=== PATIENT | female | born 1970 | race Caucasian/White ===

== ENCOUNTER 2019-08-25 18:06 | Emergency (ER) | payer BC, SELFPAY ==
--- NOTE | 2019-08-25 18:14 | XR_ITS ---
PROCEDURE: XR ANKLE RT MIN 3V CLINICAL INDICATION: fell, twisted ankle Twisting injury with pain COMPARISON: No exams were available for comparison FINDINGS: Small calcific density is present at the tip of the lateral malleolus with associated soft tissue swelling consistent with an avulsion fracture. No other acute findings evident. IMPRESSION: Calcific density at the tip of the lateral malleolus. This could be related to small avulsion fracture or ununited ossification center. There is associated soft tissue swelling Dictated by: Bismark Young MD 08/26/2019 06:44 Electronically signed by Bismark Young MD in [place] 08/26/2019 06:44
[2019-08-25 18:20] VITALS: BP 145/96; PULSE 103; RESP 20; TEMP 36.6; O2SAT 99; BMI 25.2
--- NOTE | 2019-08-25 18:28 | HMH.EDUTC ---
[facility] [place] Clinical Impression: Ankle sprain Qualifiers: Encounter type: initial encounter Involved ligament of ankle: other ligament Laterality: right Qualified Code(s): S93.491A - Sprain of other ligament of right ankle, initial encounter Disposition: Home, Self-Care Condition on Discharge: Good Instructions: How to Use Crutches, Ankle Sprain, DI for Ankle Sprain, How To Perform RICE (Rest, Ice, Compress, Elevate), How to Use a Walking Boot Additional Instructions: *RICE, Rest the extremity, Ice 15-20 minutes 3-4 times daily, Compress- wear the danny wrap as discussed as much as possible to help reduce swelling and pain, Elevate the extremity when at rest *Danny wrap is for support and help control swelling, use it except in the shower. Be sure that is not to tight but not to loose either *Elevate when resting *Ibuprofen every 6-8 hours as needed for pain an inflammation. If need something more can take Tylenol in between doses of Ibuprofen to help Immediately follow up with your family doctor for new or worsening of symptoms, or no noticeable improvement over the next 3-5 days Call back to [facility] alter this evening or tomorrow after 1pm for official Radiology reading of your xray Follow up with Dr Henry for further evaluation and treatment of your ankle sprain/injury Return if needed Straight to ER if any life threatening symptoms Referrals: Stefan Granados MD [Primary Care Provider] - As needed Dolly Henry DPM [Staff Physician] - As needed Time of Disposition: 18:39 Medical Decision Making - Dustin Inquiry Pt receiving controlled substance: No Dustin was queried for this patient: No Vital Signs: 08/25/19 18:20 08/25/19 18:51 Temperature 97.9 F 97.9 F Temperature Source Oral Pulse Rate 103 H Pulse Rate [Right Brachial] 103 H Respiratory Rate 20 20 Blood Pressure 145/96 H Blood Pressure [Right Arm] 145/96 H Blood Pressure Mean [Right Arm] 112 Blood Pressure Source [Right Arm] Automatic Cuff Blood Pressure Position [Right Arm] Sitting 02 Sat by Pulse Oximetry 99 Oxygen Delivery Method Room Air Orders (Tests/Meds): ORDERS Category Date Time Status Ankle XR -Right minimum 3 Views [XR ankle RT min 3V] Exams 08/25/19 18:14 Taken Stat - Radiology Data #1 Image(s): Ankle Image Reviewed: Yes I reviewed the patient's radiology image No acute fracture observed, will place in walking boot, crutches and have patient follow up with Dr Henry [facility] [place] - General Stated complaint: AO fall injured R ankle 08/23/19 Time Seen by Provider: 08/25/19 18:28 Mode of Arrival: Ambulatory Source of Information: Patient Limitations: No Limitations Description of Symptoms (Recalled from Triage Doc. by RN): PATIENT STATES THAT SUNDAY SHE WENT TO STEP OUT OF HER CAMPER AND TURNED HER RIGHT ANKLE. SWELLING NOTED TO SITE HEENT Symptoms (Recalled from RN notes): No Resp Symptoms (Recalled from RN notes): No Skin Symptoms (Recalled from RN notes): No MS Symptoms (Recalled from RN notes): Yes Functional Status (Recalled from RN notes): WNL - History of Present Illness Provider Complaint: Patient states that she was walking out of her camper earlier when she slipped and rolled her right ankle States that she has been able to walk on it but having pain, swelling, and bruising that has continued to get worse States that family member came over and looked at it and told her that she needed to get it checked so she came in - Related Data Home Medications Medication Instructions Recorded Confirmed No Known Home Medications 08/25/19 08/25/19 Allergies Allergy/AdvReac Type Severity Reaction Status Date / Time Sulfa (Sulfonamide Allergy Verified 08/25/19 18:24 Antibiotics) - Worker's Comp Is this a Worker's Comp case?: No [facility] History - Hepatitis A Screen Drug use history?: No High risk sexual behaviors?: No History of sexually transmitted infection?: No Currently employed?: No
[2019-08-25 18:51] VITALS: BP 145/96; PULSE 103; RESP 20; TEMP 36.6; O2SAT 99
== END 2019-08-25 18:55 | disposition home or self-care (01) ==
PROVIDERS: Emergency Provider Nurse Practitioner; PCP Internal Medicine Adolescent Medicine
DX: S93.491A Sprain of other ligament of right ankle, initial encounter (principal); X50.1XXA Overexertion from prolonged static or awkward postures, initial encounter; Y92.89 Other specified places as the place of occurrence of the external cause
CPT/HCPCS: 29515; 73610; 99201; 99202

== ENCOUNTER → 2020-09-16 09:34 | Outpatient (CLI) | payer BC, SELFPAY ==
--- NOTE | 2020-09-16 09:34 | MM_ITS ---
PROCEDURE INFORMATION: Exam: MG Screening 3D Mammography Exam date and time: 09/16/2020 9:34 AM Age: 50 years old Clinical indication: Encounter for screening mammogram for malignant neoplasm of breast. Family history of breast carcinoma TECHNIQUE: Imaging protocol: Screening tomosynthesis and 2D mammography including computer-aided detection (CAD) when performed. COMPARISON: No relevant prior studies available. FINDINGS: MAMMOGRAPHY: Breast composition: The breasts are extremely dense, which lowers the sensitivity of mammography. Mass: No new suspicious masses. Architectural distortion: No suspicious distortion. Calcifications: There is a 1 cm grouping of calcifications in the 6 o'clock position of the right breast, posterior depth. No suspicious calcifications in the left breast. Asymmetric density: None. She Skin thickening: None. Axillary adenopathy: None. IMPRESSION: 1. Recommend right breast spot magnification CC/ML views for further evaluation of a 1 cm grouping of calcifications in the 6 o'clock position. 2. No definite mammographic evidence of malignancy in the left breast. 3. Of note, patient reports having prior mammograms. Every attempt should be made to obtain prior mammograms for comparison. If/when these prior exams become available for comparison, an addendum will be made, if necessary. ASSESSMENT: BI-RADS Category 0: Incomplete- Need Additional Imaging Evaluation and/or Prior Mammograms for Comparison
== END ==
PROVIDERS: PCP Internal Medicine Adolescent Medicine; Visit Provider Nurse Practitioner Obstetrics & Gynecology
DX: Z12.31 Encounter for screening mammogram for malignant neoplasm of breast (principal)
CPT/HCPCS: 77063; 77067

== ENCOUNTER → 2020-10-13 14:18 | Outpatient (CLI) | payer BC, SELFPAY ==
--- NOTE | 2020-10-13 14:18 | MM_ITS ---
PROCEDURE: MM DIG MAMM BI DX W/CAD Digital Breast Tomosynthesis Included CLINICAL INDICATION: abnormal findings on previous imaging of breast COMPARISON: MG MM DIG SCREENING MAMM BI W/CAD from 09/16/2020 TECHNIQUE: Standard CC and MLO images and 3D Tomosynthesis was obtained. R2 CAD reviewed. FINDINGS: Spot compression magnification views show a small grouping of microcalcifications with no associated mass or architectural distortion. However they have a somewhat amorphous appearance and as of the reading of these additional views previous mammograms are not available for review. Of leave the patient should have stereotactic biopsy if previous studies cannot be found for review. IMPRESSION: Indeterminate but somewhat mildly suspicious calcifications BI-RAD Category: 4 Suspicious Abnormality - Biopsy Considered FOLLOW-UP: BIO Biopsy Recommended (A letter has been sent to the patient regarding results of the study.) Dictated by: Dr. Juni Gagnon MD 10/13/2020 14:53 Dr. Juni Gagnon MD in [place] 10/13/2020 14:53
== END ==
PROVIDERS: PCP Internal Medicine Adolescent Medicine; Visit Provider Nurse Practitioner Obstetrics & Gynecology
DX: R92.8 Other abnormal and inconclusive findings on diagnostic imaging of breast (principal)
CPT/HCPCS: 77061; 77065; G0279

== ENCOUNTER → 2020-11-01 15:05 | Outpatient (CLI) | payer BC, SELFPAY ==
--- NOTE | 2020-11-01 15:05 | US_ITS ---
PROCEDURE: US TRANSVAGINAL CLINICAL INDICATION: heavy periods COMPARISON: No exams were available for comparison FINDINGS: UTERUS: 11cm x 6cmx 4cm with a combined endometrial thickness of 18.4mm. There is a small nabothian cyst at 5 mm. LEFT OVARY: [id number] with a volume of 7.4ml. RIGHT OVARY: [id number] with a volume of 5.1ml. The endometrium is thickened at 2 cm. There is heterogeneous echogenicity of the endometrium. I so echogenicity is present along the anterior aspect of the endometrium. Small septated cyst of the right ovary 3 x 1.6 cm. No cul-de-sac fluid evident. IMPRESSION: Thickened endometrium with heterogeneous echogenicity with isoechoic region along the endometrium anteriorly in the mid to lower uterine segment region of questionable significance and may only be related to the heterogeneous endometrium. Follow-up suggested as a lesion within the endometrium is also consideration. Dictated by: Bismark Young MD 11/01/2020 16:03 Bismark Young MD in [place] 11/01/2020 16:03
== END ==
PROVIDERS: PCP Internal Medicine Adolescent Medicine; Visit Provider Nurse Practitioner Obstetrics & Gynecology
DX: N85.2 Hypertrophy of uterus (principal); N92.0 Excessive and frequent menstruation with regular cycle
CPT/HCPCS: 76830

== ENCOUNTER → 2020-11-16 09:28 | Outpatient (CLI) | payer BC, SELFPAY ==
--- NOTE | 2020-11-16 | MM_ITS ---
PROCEDURE: MM STEREOTACTIC LOC RT CLINICAL INDICATION: abnormal findings on previous breast imaging Suspicious calcifications TECHNIQUE: The patient was given 1 mg of Xanax, Lortab 7.5 mg, and analgesia and minor sedation. Following obtaining informed consent and time-out procedure, the patient was placed on the stereotactic table and the abnormal calcifications at the 6 o'clock position was localized in the most appropriate projection. The breast was prepped in the routine manner, with sterile prep and the overlying skin anesthetized. A 3 to 4 mm skin incision was performed and the 8 gauge sorus vacuum-assisted core biopsy needle was advanced to the region of the calcification. Pre- and post fire images were obtained. After adequate positioning relative to the calcifications was ensured, multiple biopsies were obtained in the region of the calcifications specifically. Specimen radiograph: The core biopsies obtained were sent for specimen mammography. After the calcifications were indeed identified on the specimen mammogram, the procedure was terminated. The patient tolerated the procedure well without complications. Specimen was sent for pathologic analysis. A tiny titanium nonferromagnetic MicroMark was positioned through the mammotome needle into the biopsy site. Pathology: Benign breast tissue. Focal fibroadenomatoid change. Microcalcifications. Negative for atypical hyperplasia/malignancy IMPRESSION: S/p stereotactic biopsy of the right breast showing benign findings. Successful clip placement with calcifications removed. No immediate complications. Suggest 6 month mammographic follow-up per routine protocol. SPECIMEN RADIOGRAPH: The mammographically evident calcifications from the prior study are currently evident within the Scottie dish and within the specimens obtained during mammotome procedure. This is considered an adequate specimen and the procedure was terminated. IMPRESSION: Successful removal of described breast calcifications. BREAST MAMMOGRAM: Compared to the prior study, the previously noted calcification have been removed. A small MicroMark clip was inserted into the region of the calcifications. There is evidence of soft tissue changes in the region of the biopsy was soft tissue gas and edema. 1. Adequate placement of the MicroMark clip postbiopsy. 2. Postbiopsy changes within the breast. Dictated by: Bismark Young MD 11/19/2020 10:31 Bismark Young MD in [place] 11/19/2020 10:31
== END ==
PROVIDERS: PCP Internal Medicine Adolescent Medicine; Visit Provider Nurse Practitioner Obstetrics & Gynecology
DX: R92.8 Other abnormal and inconclusive findings on diagnostic imaging of breast (principal)
CPT/HCPCS: 19081; 76098; 77065

== ENCOUNTER → 2020-12-20 07:42 | Outpatient (CLI) | payer BC, SELFPAY ==
[2020-12-20 08:19] LABS: Coronavirus 19, PCR Not Detected (NotDetected); Influenza A, PCR Not Detected (NotDetected); Influenza B, PCR Not Detected (NotDetected)
[2020-12-20 08:33] LABS: Basophils # 0.1 K/mm3 (0-0.2); Eosinophils # 0.2 K/mm3 (0.0-0.4); Eosinophils % 2.1 % (0.1-12.0); Hematocrit 41.4 % (37.0-47.0); Hemoglobin 13.3 g/dL (12.2-16.2); Lymphocytes # 1.3 K/mm3 (0.7-4.5); Lymphocytes % 16.1 % (10-50); Mean Corpuscular Hemoglobin 27.8 pg (27.0-31.2); Mean Corpuscular Volume 86.9 fl (81-99); Monocytes # 0.4 K/mm3 (0.1-1.0); Neutrophils # 6.3 K/mm3 (1.8-7.8); Neutrophils % 75.9 % (37.0-80.0); Platelet Count 319 K/mm3 (142-424); Red Blood Count 4.76 M/mm3 (4.20-5.40); Red Cell Distribution Width 14.5 % (11.5-17.5); White Blood Count 8.3 K/mm3 (4.8-10.8)
[2020-12-20 09:07] LABS: HCG Qualitative, Serum Negative (Negative)
[2020-12-20 09:09] LABS: Anion Gap 11.2 mEq/L (5-15); Blood Urea Nitrogen 13 mg/dl (7-17); Calcium 8.8 mg/dl (8.4-10.2); Carbon Dioxide 23 mmol/L (22.0-30.0); Chloride 110 mmol/L (98-107); Estimated Glomerular Filt Rate 66 ml/min (>60); GFR (African American) 80 ML/MIN (>60); Glucose 110 mg/dl (74-100); Potassium 4.2 mmoL/L (3.5-5.1); Sodium 140 mmol/L (136-145)
== END ==
PROVIDERS: Visit Provider Nurse Practitioner Obstetrics & Gynecology
DX: Z01.812 Encounter for preprocedural laboratory examination (principal); Z11.52 Encounter for screening for COVID-19; N93.9 Abnormal uterine and vaginal bleeding, unspecified; N84.0 Polyp of corpus uteri
CPT/HCPCS: 36415; 80048; 84703; 85025; C9803; U0003; U0005

== ENCOUNTER 2020-12-22 07:22 | Day surgery (SDC) | payer BC, SELFPAY ==
[2020-12-22] VITALS (8 sets, daily range): BP systolic 109–138; BP diastolic 51–88; PULSE 60–81; RESP 16–18; TEMP 36.2–37.3; O2SAT 97–100; BMI 25.4
--- NOTE | 2020-12-22 08:18 | P.PN_ITS ---
[facility] Anesthesia Checklist - Patient Identification Patient Identification: Arm Band, Verbal (Name & ) - Structural Data Admitted From: Home Planned Operative Procedure/s: D and C Consent for Planned Operative Procedure(s) Verified: Yes Verified Documents: History and Physical - NPO Status Verified Time NPO: 00:00 - Chart Verification Results Verified: CBC, BMP - Additional verifications Patient : No Anesthesia Reactions: No Hx Blood Transfusions: No Blood Transfusion Reaction: No Cephalosporin Allergy: No Previous Colonoscopy: No - Cardiovascular Assessment Heart Sounds: S1 & S2 Pulse Strength: Baseline Pulse Rhythm: Regular Peripheral Edema: No - Airway Assessment C-Spine Mobility Assessed: Yes TMJ Mobility Assessed: Yes Dentition: Good Dentition - Neurological Assessment Level of Consciousness: Awake, Alert, Appropriate Hx Seizures: No Numbness or tingling in extremities: No - Anesthesia Plan Anesthesia Risk discussed: Yes Anesthesia Plan: Verified ASA Class: I Anesthesia Type: General [facility] History I have reviewed the patient's past medical history: Yes Medical History: Denies:: Cancer, Diabetes Mellitus Type 1, Diabetes Mellitus Type 2, MRSA, Seizures *Have you ever received a pneumonia vaccine?: No *Have you received a flu vaccine this season?: No Other Medical History: Denies: Blood Transfusion Reaction Anesthesia experience/problems:: none Other Surgeries: Yes: Tubal Ligation Amputation: No Fractures: Yes (RIGHT ELBOW) - *Social History Last grade of school completed: Advanced degree Smoking Status: Never smoker Alcohol Intake: never Substance Use Type: other *Occupational Status:: employed Housing: house Household Members: spouse *Travel in the last 8 weeks: None Family Hx:: Diabetes ZOO DIRECTOR history: Tubal Ligation
--- NOTE | 2020-12-22 09:29 | HMH.OPNOTE ---
Date of procedure: 12/22/20 Pre-op Diagnosis:: Menorrhagia, thickened endometrium, possible polyp Post-op Diagnosis:: Menorrhagia, thickened endometrium, polypoid appearance to the endometrial cavity. Procedure performed:: Hysteroscopy, dilation and curettage, MyoSure Surgeon:: Gee Lux MD AEGIS CONSOLE OPERATOR TRACK:: Other (Phi Boyle) Anesthesia: LMA Estimated blood loss (mL): 50 Clinical Note:: She is a 50-year-old lady who complains of extremely heavy painful periods. An ultrasound in my office and SIS showed a polypoid appearance to the thickened endometrium that was about 2 cm in size. As result of that she was offered hysteroscopy, D&C and MyoSure. Operative findings:: She had a thickened, lush endometrium that had a polypoid appearance to it. The cavity otherwise appeared normal. Operative note:: She was taken the operating room where LMA anesthesia was found be adequate. She is prepped draped normal sterile fashion in the lithotomy position. A weighted speculum placed in vagina and the anterior lip of the cervix was grasped with a tenaculum. Saxena dilators used to dilate the cervix to approximately 7 mm. We then inserted a hysteroscope into the uterine cavity and the findings were as previously dictated. The MyoSure device was then inserted through the scope and I shaved the entire endometrial cavity. This was followed by gentle curettage. We then injected 30 cc of 0.5% ropivacaine at the 3:00, 5:00, 7:00 and 9:00 positions of the cervix. The ins and outs of fluid were equal. She tolerated procedure well and was taken recovery room in excellent condition. All sponge, instrument and needle counts were correct. The estimated blood loss was approximately 50 cc. Condition: stable Disposition: PACU Specimens:: Endometrial curettings Complications:: None
--- NOTE | 2020-12-22 09:41 | P.PN_ITS ---
[facility] Anesthesia Record Part I Intake, IV Amount: 500 Estimated blood loss (mL): 10 Urine output (mL): 0 Blood Products used (#): none Blood Pressure: 114/76 SaO2: 98 Pulse Rate: 67 Respiratory Rate: 16 Temperature: 97.1 F Patient is:: Drowsy, Stable Stable to PACU at:: 09:33
--- NOTE | 2020-12-23 09:01 | P.PN_ITS ---
[facility] Anesthesia Record Part II Discharge Time: 10:03 Destination: Surgical Day Care (OP Surgery) PACU nurse assessment reviewed?: Yes Patient Condition:: Good Anesthesia Complications:: None Swallowing reflex intact?: Yes Cyanosis?: No Blood Pressure: 117/77 Pulse Rate: 62 Temperature: 97.4 F Mental Status: Alert & Oriented Pain level:: 1 Nausea and/or vomitting:: None Intake, IV Amount: 50
[2020-12-23 09:02] VITALS: BP 117/77; PULSE 62; TEMP 36.3
== END 2020-12-22 10:33 | disposition home or self-care (01) ==
LOC: OR 07:24
PROVIDERS: PCP Internal Medicine Adolescent Medicine; Visit Provider Nurse Practitioner Obstetrics & Gynecology
PROC: 0UB98ZZ Excision of Uterus, Via Natural or Artificial Opening Endoscopic (ICD-10-PCS; CPT 58558; principal; 2020-12-22 09:00)
DX: N93.9 Abnormal uterine and vaginal bleeding, unspecified (principal); N84.0 Polyp of corpus uteri; Z98.51 Tubal ligation status; Z83.3 Family history of diabetes mellitus; Z88.2 Allergy status to sulfonamides
CPT/HCPCS: 58563; 96374; J2405

== ENCOUNTER 2025-01-09 15:10 | Outpatient (CLI) | payer BC, SELFPAY ==
--- OUTSIDE RECORDS SUMMARY | 2024-06-28 17:30 | XMS_ITS ---
Author Organization [facility] Address [address] [facility] [address] [place] [address] Care Team Providers Care Nuclear Pharmacist Name Role Phone Maxine Jordan Primary Care Provider MAXINE JORDAN Unavailable Unavaila ble Migration, Provider Unavailable Unavailable Allergies Allergen (clinical drug ingredient) Drug/Non Drug Allergy documented on EMR Reaction Allergy Type Onset Date Status SULFA (uncoded) Unknown Allergy Acti ve REASON FOR VISIT Multum To Medispan Conversion Encounter Encounters Encounter Location Date Provider Diagnosis [facility] [address] [facility] [address] [place], [place] [address] 06/28/2024 Provider Migration Plan Of Treatment No Information Progress Notes * Pili VARGAS FDOB: [birth year] (54 yo F)Acc No.[id number]:06/28/2024 Patient: Pili LÓPEZ Provider: Lynda leigh Migration :1970 A ge:54 Y S ex:Female Date:06/28/2024 Address:[address] [place] [address] [address], [place], [id number] Pcp:Maxine Jordan Subjective: * Chief Complaints: * 1 . Multum To Medispan Conversion Encounter. * Medical History: * Allergies: S ULFA. Objective: * Vitals: Assessment: Plan: * Treatment: * * Electronic signature of Prov ider Migration on 01/09/2025 at 03:13 PM EDT Sign off status: Pending * Provider: Lynda leigh Migration Date: 0 06/28/2024 Generated for Monik rai/Soto/Vidal on: 1 03:13 PM EDT
--- OUTSIDE RECORDS SUMMARY | 2025-01-09 15:13 | XMS_ITS | Patient Health Record ---
Author Organization [facility] Address [address] [facility] [address] [facility] [address] [place] [address] Care Team Providers Care Soft Metals Hand Engraver Name Role Phone Maxine Jordan Primary Care Provider MAXINE JORDAN Unavailable Unavaila ble [facility], Provider Unavailable Unavailable Nannette Montelongo Unavailable [phone] Allergies Allergen (clinical drug ingredient) Drug/Non Drug Allergy documented on EMR Reaction Allergy Type Onset Date Status SULFA (uncoded) Unknown Allergy Acti ve Results Component Value Reference Range Notes Urinalysis (Not yet reviewed by provider) Interpretation: Performing Lab: Notes/Report: Color/Clarity yellow Leuk neg Nitrite neg Urobili 0.2 Protein neg pH 5.5 Blood neg Sp. Gr. 1.025 Ketone neg Bili neg Glucose neg Problems Problem Type SNOMED Code ICD Code Onset Dates Problem Status W/U Status Risk Notes Problem Otitis media (67691089) Otitis media, unspecified, right ear (H66.91) Active confirmed Problem Excessive and frequent menstruation (318216974) Menorrhagia with regular cycle (N92.0) Active confirmed Problem Impacted cerumen (69743788) Impacted cerumen of right ear (H61.21) Active confirmed Problem Atrophic vaginitis (83540699) Atrophic vaginitis (N95.2) Active confirmed Vital Signs Heart Rate 84 /min 01/09/2025 Temperature 98.7 degrees Fahrenheit 01/09/2025 Blood pressure diastolic 86 mm Hg 01/09/2025 Height 65.25 in 01/09/2025 Blood pressure systolic 124 mm Hg 01/09/2025 Weight 166 lbs 01/09/2025 BMI 27.41 kg/m2 01/09/2025 Encounters Encounter Location Date Provider Diagnosis [facility] [address] [place] [address] 06/28/2024 Provider Migration [facility] [address] [place] [address] 01/09/2025 Nannette Montelongo Frequent urination R35.0 ; Atrophic vaginitis N95.2 and Right flank pain R10.A1 [facility] [address] [place] [address] 06/30/2024 Maxine Jordan Acute non-recurrent maxillary sinusitis J01.00 Assessments Encounter Date Diagnosis (ICD Code) Assessment Notes Treatment Notes Treatment Clinical Notes Section Notes 06/30/2024 Acute non-recurrent maxillary sinusitis (ICD-10 - J01.00) Discussed the etiology and expected course of acute sinusitis. Discussed the rationale for antibiotics use and the importance of completing the Augmentin prescription as prescribed. Dexamethasone given IM. Discussed supportive care with antihistamines and appropriate decongestants. Discussed the signs and symptoms of worsening infection that may indicate need for reassessment in clinic/ED. 01/09/2025 Frequent urination (ICD-10 - R35.0) 01/09/2025 Atrophic vaginitis (ICD-10 - N95.2) 01/09/2025 Right flank pain (ICD-10 - R10.A1) Plan Of Treatment Pending Test Test Name Order Date Urinalysis 01/09/2025 Mammogram : Left breast 04/02/2007 Mammogram : Right Breast 04/08/2007 EKG : In House 01/31/2010 H-CMP 01/31/2010 H-LIPID PANEL 01/31/2010 X ray : KUB 01/09/2025 Insurance Providers Payer Name Payer Address Payer Phone Subscriber Number Group Number Insured Name Patient Relationship to Insured Coverage Start Date Coverage End Date [employer] [address] [place] [address] [id number] Pili Vargas Self - patient is the insured Medications Administered Medication Instructions Date of Administration Dosage Notes Dexamethasone 4mg Injection 06/30/2024 4 mL Kenalog 06/02/2016 1 mL Medical (General) History Medical History History ICD Code Left hearing Loss Surgical History Surgery Date(Month/Year) Uterine D&C Dr Lux 2020
--- NOTE | 2025-01-09 15:17 | XR_ITS ---
FINAL REPORT CLINICAL HISTORY: RT FLANK PAIN FINDINGS: SINGLE VIEW ABDOMEN A single view of the abdomen was obtained. There is a nonobstructive bowel gas pattern. There are no abnormally dilated loops of small bowel. There are tubal ligation clips present. Pelvic calcifications are likely phleboliths. No abnormal calcifications are identified. IMPRESSION: Nonobstructive bowel gas pattern. Reviewed, Interpreted and Dictated by Susan Mandujano MD Transcribed by Patricia Morrison Authenticated and [facility]
== END 2025-01-09 23:59 | disposition home or self-care (01) ==
LOC: RAD 15:11
PROVIDERS: PCP Internal Medicine Adolescent Medicine
DX: R10.A1 Flank pain, right side (principal); R35.0 Frequency of micturition
CPT/HCPCS: 74018